=== PATIENT | female | born 1945 | race African-American/Black ===

== ENCOUNTER 2019-02-21 13:01 | Outpatient (CLI) | payer MEDICARE ==
--- NOTE | 2019-02-21 14:01 | CT ---
CT CHEST LOW DOSE WITHOUT IV CONTRAST FOR LUNG CANCER SCREENING: HISTORY: Current smoker with a 50 year history of half pack a day smoking. The patient gets short of breath so metimes when walking. COMPARISON: CT pulmonary angiogram from 02/10/2003. FINDINGS: Absence of IV contrast reduces the sensitivity of the exam. There are vascular calcifications without evidence of aneurysmal dilatation of the thoracic aorta. No pleural or pericardial effusions are seen. There are a few calcified lung nodules, consistent with o ld granulomatous disease. There are a few noncalcified solid lung nodules, measuring up to 3 mm. Thes e are seen in the right upper lobe, right middle lobe and right lower lobe. There are degenerative changes in the spine. IMPRESSION: Lung-RADS 2 - negative with benign pulmonary findings. RECOMMENDATIONS: Continue annual screening with LDCT (low-dose CT) in 12 months. POS: [facility]
== END 2019-02-21 13:02 | disposition home or self-care (01) ==
LOC: CT 13:01
PROVIDERS: ATTEND Family Medicine
DX: N18.3 Chronic kidney disease, stage 3 (moderate) (principal); F17.210 Nicotine dependence, cigarettes, uncomplicated
CPT/HCPCS: G0297

== ENCOUNTER 2023-01-05 12:19 | Outpatient (CLI) | payer OTHER | END 2023-01-05 12:20 | disposition home or self-care (01) | LOC: BICRAD 12:19 | DX: M17.0 Bilateral primary osteoarthritis of knee (principal); M11.262 Other chondrocalcinosis, left knee; M11.261 Other chondrocalcinosis, right knee | CPT/HCPCS: 73565 ==